=== PATIENT | female | born 1990 | race Caucasian/White ===

== ENCOUNTER 2016-10-23 06:51 | Inpatient (IN) | payer SELFPAY ==
[2016-10-23] VITALS (23 sets, daily range): BP systolic 107–151; BP diastolic 58–82
[~2016-10-23] VITALS: Ht 162.6 cm; Wt 72.6 kg
[2016-10-23 07:38] LABS: EOSINOPHIL (%) 0.6 % (0-5); EOSINOPHIL COUNT 0.1 K/uL (0-0.3); HEMATOCRIT 36.5 % (36.0-46.0); IMMATURE GRANULOCYTE (%) 0.7 % (0.0-0.7); IMMATURE GRANULOCYTE COUNT 0.1 K/uL; INSTRUMENT ABS NEUTROPHIL CT 8.1 K/uL; LYMPHOCYTE COUNT 2.2 K/uL (1.0-2.8); MCH 31.7 PG (29.0-34.0); MCHC 34.2 G/DL (30.0-36.0); MCV 92.6 FL (83-99); MEAN PLAT.VOLUME 12.3 uM^3 (9.5-12.4); MONOCYTE (%) 7.1 % (3-12); MONOCYTE COUNT 0.8 K/uL (0-0.8); NEUTROPHIL (%) 71.5 % (45-76); NEUTROPHIL COUNT 8.1 K/uL (1.8-6.4); PLATELET COUNT 132 K/uL (156-360); RBC DIS.WIDTH-CV 12.6 % (11.8-14.6); RED BLOOD COUNT 3.94 M/uL (3.80-5.20); WHITE BLOOD COUNT 11.3 K/uL (4.1-10.2)
[2016-10-23] MEDS ORDERED: IBUPROFEN800 MG PO (20:11)
[2016-10-24 07:43] VITALS: BP 112/59
[2016-10-24 14:58] VITALS: BP 117/71
[2016-10-24] MEDS ORDERED: BREAST PUMP MC (16:07)
[2016-10-24 22:56] VITALS: BP 119/66
== END 2016-10-25 13:00 | disposition home or self-care (01) | DRG 775 ==
LOC: LDRP-OP 06:51 → 2WEST 06:52 → LDRP-OP 19:00 → 2WEST 20:00 → LDRP-OP 11-24 13:17
PROVIDERS: Obstetrics & Gynecology
PROC: 10E0XZZ Delivery of Products of Conception, External Approach (ICD-10-PCS; principal; 2016-10-23)
PROC: 10907ZC Drainage of Amniotic Fluid, Therapeutic from Products of Conception, Via Natural or Artificial Opening (ICD-10-PCS; principal; 2016-10-23)
PROC: 3E0R3CZ (ICD-10-PCS; 2016-10-23)
PROC: 00HU33Z Insertion of Infusion Device into Spinal Canal, Percutaneous Approach (ICD-10-PCS; 2016-10-23)
PROC: 3E033VJ Introduction of Other Hormone into Peripheral Vein, Percutaneous Approach (ICD-10-PCS; 2016-10-23)
DX: O99.344 Other mental disorders complicating childbirth (principal); F32.9 Major depressive disorder, single episode, unspecified; F41.9 Anxiety disorder, unspecified; J45.909 Unspecified asthma, uncomplicated; O99.52 Diseases of the respiratory system complicating childbirth; Z37.0 Single live birth; Z3A.39 39 weeks gestation of pregnancy
CPT/HCPCS: 85025; C1755; J3010; J7120

== ENCOUNTER → 2016-11-13 | Outpatient (CLI) | payer OTHER ==
[~2016-11-13] MED LIST: BREAST PUMP MC; IBUPROFEN800 MG PO
== END | disposition home or self-care (01) ==
LOC: LAC 12:40
DX: O92.29 Other disorders of breast associated with pregnancy and the puerperium (principal); O92.79 Other disorders of lactation
CPT/HCPCS: G0463